=== PATIENT | male | born 1995 | race Caucasian/White ===

== ENCOUNTER 2018-07-22 17:25 | Emergency (ER) | payer MEDICAID ==
[~2018-07-22] VITALS: Ht 175.3 cm; Wt 100.0 kg
[2018-07-22] MEDS ORDERED: FLUORESCEIN SODIUM 1 MG STRIP ONE (18:08)
[2018-07-22] MEDS ORDERED: PROPARACAINE HCL 0.5% 15 ML OPHTHALMIC SOLUTION OS ONE (18:15)
[2018-07-22 19:07] VITALS: BP 111/76
== END 2018-07-22 19:09 | disposition home or self-care (01) ==
LOC: EMS 17:27
DX: H57.12 Ocular pain, left eye (principal); F17.210 Nicotine dependence, cigarettes, uncomplicated